=== PATIENT | male | born 1975 | race Caucasian/White ===

== ENCOUNTER 2019-02-17 17:18 | Emergency (ER) | payer SELFPAY ==
[2019-02-17 17:19] VITALS: BP 129/88; PULSE 85; RESP 16; TEMP 37.3; O2SAT 95; BMI 22.1
--- NOTE | 2019-02-17 17:48 | RAD_ITS ---
STUDY: X-RAY CHEST REASON FOR EXAM: Male, 43 years old. Chest pain TECHNIQUE: Portable chest COMPARISON: 06/25/2017 FINDINGS: There is stable mild S-shaped thoracolumbar spinal scoliosis. Multilevel degenerative changes with osteophyte formation and disc space narrowing. The lungs are clear and expanded. There is no demonstrated pleural abnormality. Normal size heart. Normal mediastinum and johanna. Normal visualized pulmonary arteries. Normal visualized aortic arch and descending thoracic aorta. Normal visualized thoracic spine. Normal visualized ribs, clavicles, and shoulders. There is no demonstrated abnormality of the visualized soft tissue structures of the upper abdomen. RAD/Chest 1 View (Portable) IMPRESSION: No acute process, stable mild S-shaped thoracolumbar spinal scoliosis, stable multilevel spondylosis Electronically Signed: Ben Hdz, at 18:16 EDT Tel , Service support ,
--- NOTE | 2019-02-17 17:48 | EKG12_ITS ---
Test Reason : CP Blood Pressure : / mmHG Vent. Rate : 067 BPM Atrial Rate : 067 BPM P-R Int : 164 ms QRS Dur : 084 ms QT Int : 358 ms P-R-T Axes : 080 095 066 degrees QTc Int : 378 ms Normal sinus rhythm with sinus arrhythmia Rightward axis Borderline ECG Confirmed by VAUGHN CHANDLER, MIQUEL ([id number]), social media editor SAM HARRISON ([id number]) on 02/20/2019 11:43:49 AM Referred By: KLEVER Confirmed By:MIQUEL MENDES MD
--- NOTE | 2019-02-17 17:53 | ED.DCSUM_ITS ---
History of Present Illness Chief Complaint: Chest Pain Informant: Patient Onset: Days - 3 Timing: Continuous Quality: burning, ache Location: epigastrium/lower mid-chest Current Severity: Moderate Maximum Severity: Moderate Worsened by: nothing Relieved by: burping, briefly Associated Symptoms: palpitations/racing/pounding, giving him lightheadedness Narrative: Patient has a history of reflux along with a hiatal hernia, he does not want to be on any medication for that and states this result he gets burning in his epigastrium chronically, almost daily. That is felt worse in the last 3 or 4 days and he has had episodes of heart pounding and beating fast with very little exertion that results in lightheadedness, he has had no loss of consciousness, but he is concerned about the symptoms. 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 He smokes. He does no other drugs. He denies any dyspnea or leg swelling or orthopnea. No history of DVT or PE. - Past Medical History (1) GERD (gastroesophageal reflux disease) Status: Chronic (2) Hiatal hernia Status: Chronic (3) Hyperlipidemia Status: Chronic Past Medical History - Allergies and Home Meds Allergies/Adverse Reactions: Allergies No Known Allergies Allergy (Verified 02/17/19 17:22) Primary Care Physician: Abdias Esquivel MD [Primary Care Provider] - 3-5 Days Lives: Spouse/ Significant Other Smoking Status: Current every day smoker Drugs: None Review of Systems General: Denies: Chills, Fever, Sweats Eyes: Denies: Visual changes - bilaterally, Diplopia ENT: Denies: Rhinorrhea, Sore throat Cardiovascular: Reports: Chest pain, Palpitations, Heart racing Respiratory: Denies: Dyspnea, Cough, Dyspnea on exertion, Orthopnea, Paroxysmal nocturnal dyspnea Gastrointestinal: Reports: Abdominal pain. Denies: Nausea, Vomiting, Diarrhea, Melena, Hematochezia Genitourinary: Denies: Dysuria, Hematuria, Frequency Musculoskeletal: Denies: Back pain, Extremity Pain Skin: Denies: Rash, Wounds Neurological: Denies: Headache, Weakness, Numbness Physical Exam Vital Signs/Narrative: Vital Signs Temp Pulse Resp BP Pulse Ox 02/17/19 17:19 99.2 F H 85 16 129/88 H 95 Inital Vital Signs reviewed: Yes General: Well nourished, Well developed, No Acute Distress Head: Normocephalic, Atraumatic Eyes: Perrl, EOMI ENT: Moist mucous membranes, No rhinorrhea Neck: Supple, Nontender, No lymphadenopathy, No JVD Cardiovascular: Regular rate, Regular rhythm, No murmurs Respiratory: No distress, CTA bilaterally, Chest nontender Abdomen: Soft, Nondistended, Normal bowel sounds, Tender - epigastrium, mild. Negative for: Guarding, Rebound tenderness Back: Nontender, Normal Inspection Extremities: Nontender, No edema. Negative for: Calf Tenderness Skin: Normal color, No rash, No Trauma Neurological: Alert, Oriented x3, Cranial nerves II-XII grossly intact, Normal Strength, Normal Sensation Psychological: Normal affect, Normal Mood Diagnostic/Tx/Re-eval Impressions Chest X-Ray 02/17/19 17:48 IMPRESSION: No acute process, stable mild S-shaped thoracolumbar spinal scoliosis, stable multilevel spondylosis Electronically Signed: Ben Hdz, at 18:16 EDT Tel , Service support , 02/17/19 17:48 Chest 1 View (Portable) [RAD] Stat Laboratory Results 02/17/19 02/17/19 02/17/19 18:15 18:15 18:15 WBC 6.9 RBC 4.88 Hgb 15.8 Hct 45.0 MCV 92.2 MCH 32.4 H MCHC 35.1 RDW 14.0 RDW Differential 47.2 H Plt Count 232 MPV 9.4 Immature Gran % (Auto) 0.100 Neut % (Auto) 48.1 Lymph % (Auto) 44.3 H [place] % (Auto) 6.4 Eos % (Auto) 1.0 Baso % (Auto) 0.1 Absolute Neuts (auto) 3.3 Absolute Lymphs (auto) 3.05 Total Counted Not Reportable D-Dimer Quant (PE/DVT) < 0.27 L Sodium 142 Potassium 3.8 Chloride 107 Carbon Dioxide 28.0 Anion Gap 7 BUN 9 Creatinine 0.99 Estim Creat Clear Calc 93.54 Est GFR (MDRD) Af Amer 106 Est GFR (MDRD) Non-Af 88 BUN/Creatinine Ratio 9.1 L Glucose 73 L Calcium 9.6 Troponin I < 0.015 - EKG Initial EKG Interpretation: Sinus Rhythm, No Acute Injury Pattern, - - normal EKG. rate 67. borderline rightward axis. - Medical Decision Making Work-up is negative including x-ray, d-dimer, troponin. He is reassured. He tried to exert himself while on the monitor in the room and was unable to reproduce any of his symptoms, he has had no ectopy or dysrhythmias on telemetry since he has been in his ER observation. I think he needs to follow-up with his doctor, if he has persistent symptoms despite stopping caffeine and tobacco use, he should potentially get a Holter monitor and referral to cardiology. I advised him that his hiatal hernia and reflux could potentially be at play here with regards to his chronic lower chest discomfort, I gave him a GI cocktail which did help some of that, and I advised him that these are risk factors for Condon's esophagus which could be cancerous. He states he was on esomeprazole but he did not tolerate it well. I advised him to take ranitidine twice daily until he follows up with his doctor, for at least 2 weeks. He is comfortable with this plan. ED Disposition - Plan for ED Patient: Disposition: Home or Assisted Living Diagnosis: Chest pain, unspecified, Palpitations Instructions: ED Chest Pain NonCardiac, ED Palpitations Referrals: Abdias Esquivel MD [Primary Care Provider] - 3-5 Days Additional Instructions: Take ranitidine 75 mg twice daily, or may take 150 mg once daily.
[2019-02-17 18:22] LABS: Absolute Lymphocyte Count 3.05 X10^3/ul (0.83-4.51); Absolute Neutrophil Count 3.3 X10^3/uL (2.0-7.7); Basophil# 0.01 X10^3/uL; Basophil% 0.1 % (0-1); Eosinophil# 0.07 X10^3/uL; Hemoglobin 15.8 g/dl (13.0-16.5); Lymphocyte # 3.05 X10^3/ul (4.0); Lymphocyte % 44.3 % (19-41); Mean Corp Hgb Conc 35.1 g/gl (32-36); Mean Corpuscular Hgb 32.4 pg (27.0-32.0); Mean Corpuscular Volume 92.2 fL (80-94); Mean Platelet Vol. 9.4 fl (6.2-12.0); Monocyte# 0.44 X10^3/uL; Monocyte% 6.4 % (0-10); Neutrophil # 3.31 X10^3/uL (2.7-7.7); Neutrophil % 48.1 % (47-70); Platelet Count 232 K/mm3 (150-450); RBC Distribution Width SD 47.2 fl (35.1-43.9); Red Blood Count 4.88 M/mm3 (4.6-6.2); White Blood Count 6.9 K/mm3 (4.4-11.0)
[2019-02-17 18:23] LABS: POSITIVE COUNT NO; POSITIVE DIFFERENTIAL NO; POSITIVE MORPHOLOGY NO
[2019-02-17] MEDS: Mag Hydrox/Al Hydrox/Simeth 30 ML UDC PO (18:24)
[2019-02-17 18:34] LABS: D-Dimer Quantitative (DVT/PE) < 0.27 FEU/ug/m (0.27-0.49)
[2019-02-17 18:41] LABS: Anion Gap 7 (5-15); BUN 9 mg/dL (7-18); BUN/Creat Ratio 9.1 RATIO (10-20); Calcium,Total 9.6 mg/dL (8.5-10.1); Chloride 107 mmol/L (98-107); Creatinine, Serum 0.99 mg/dL (0.70-1.30); EST Glomerular Filtration Rate 88 mL/min (>60); Est Glom Filt Rate - Afr Amer 106 mL/min (>60); Estimated Creatinine Clearance 93.54 ml/min; Glucose 73 mg/dL (74-106); Potassium 3.8 mmol/L (3.5-5.1); Sodium Level 142 mmol/L (136-145)
[2019-02-17 19:21] VITALS: BP 129/64; PULSE 69; RESP 18; O2SAT 98
[2019-02-17 20:13] VITALS: BP 138/83; PULSE 78; RESP 16; O2SAT 98
== END 2019-02-17 20:16 | disposition home or self-care (01) ==
PROVIDERS: Emergency Provider Emergency Medicine; Family Provider Family Medicine; PCP Family Medicine
DX: R07.9 Chest pain, unspecified (principal); R00.2 Palpitations; F17.200 Nicotine dependence, unspecified, uncomplicated
CPT/HCPCS: 71045; 80048; 84484; 85025; 85379; 93005; 99285; A4216

== ENCOUNTER → 2019-02-28 08:40 | Outpatient (CLI) | payer SELFPAY ==
[2019-02-28 08:25] VITALS: BMI 22.1
[2019-02-28 13:05] LABS: Cholesterol 273 mg/dL (200); High Density Lipoprotein 33 mg/dL; Triglycerides 361 mg/dL; Very Low Density Lipoprotein 72 mg/dL (5-40)
== END ==
LOC: BIMLAB 08:41
PROVIDERS: Family Provider Family Medicine; PCP Internal Medicine; Visit Provider Internal Medicine
DX: E78.5 Hyperlipidemia, unspecified (principal)
CPT/HCPCS: 36415; 80061

== ENCOUNTER → 2019-03-03 06:17 | Outpatient (CLI) | payer SELFPAY ==
[2019-02-28 08:25] VITALS: BMI 22.1
--- NOTE | 2019-03-03 09:43 | STRESSREP ---
Stress Test Report Exercise myocardial perfusion stress test. 44-year-old male with a history of chest pain. Medications none. Stress protocol: Resting EKG demonstrates sinus bradycardia with a rate of 56 bpm normal intervals are noted resting blood pressures 104/62 mmHg. The patient exercised according to regular Sudheer protocol for total duration of 11 minutes completing with 2 minutes into stage IV of the Sudheer protocol the maximum heart rate attained was 173 bpm which was 97% of maximum predicted heart rate the maximum workload was 13.4 metabolic equivalents. At rest there were no ST or T wave changes noted suggest ischemia peak exercise upsloping ST changes only were noted with no meet the criteria for ischemia. The resting blood pressure was 104/62 with a peak blood pressure 164/72. No clinical angina was noted. The test was terminated due to leg fatigue. Myocardial perfusion protocol. 11.3 mCi of technetium 99m sestamibi was injected at rest. The patient exercised according to regular Sudheer protocol. At peak exercise 32.9 mCi of technetium 99m sestamibi was injected stress images were obtained stress and rest images were reconstructed in comparing the short axis vertical long horizontal long axis. Gated images were also obtained next Perfusion SPECT analysis: Review of the stress images demonstrate normal uptake of tracer noted in all areas of myocardium. The resting images similarly demonstrate normal uptake of tracer noted in all areas of the myocardium. No areas of reversibility are noted suggest ischemia no previous infarct is noted. Gated SPECT analysis: The gated ejection fraction is noted to be 69%. Conclusion: Normal exercise myocardial perfusion stress test at a high workload. Preserved ejection fraction.
== END ==
PROVIDERS: Family Provider Internal Medicine; PCP Internal Medicine; Referring Provider Internal Medicine; Visit Provider Internal Medicine
DX: R07.9 Chest pain, unspecified (principal)
CPT/HCPCS: 78452; 93017; A9500; A4216

== ENCOUNTER → 2019-09-15 11:55 | Outpatient (CLI) | payer SELFPAY ==
[2019-09-15 11:27] VITALS: BMI 22.1
[2019-09-15 11:56] LABS: Bacteria 0 SEEN /hpf (None Seen); Mucous, Urine 0 SEEN /hpf (<or=2+); Red Blood Cells-Urine 0 SEEN /hpf (0-5); White Blood Cells 0 SEEN /hpf (0-5)
[2019-09-15 13:20] LABS: ALB/GLOB Ratio 1.4 RATIO (0.9-2.4); AST(SGOT) 19 U/L (15-37); Alanine Aminotransfer ALT/SGPT 27 U/L (16-61); Albumin, Serum 4.4 g/dL (3.2-5.0); Alkaline Phosphatase 61 U/L (45-117); BUN 13 mg/dL (7-18); Calcium,Total 9.4 mg/dL (8.5-10.1); Cholesterol 284 mg/dL (200); Creatinine, Serum 1.08 mg/dL (0.70-1.30); EST Glomerular Filtration Rate 79 mL/min (>60); Est Glom Filt Rate - Afr Amer 96 mL/min (>60); Globulin 3.2 g/dL (2.2-4.2); Glucose 83 mg/dL (74-106); Protein, Total 7.6 g/dL (6.4-8.2); Triglycerides 131 mg/dL
[2019-09-15 13:21] LABS: Anion Gap 6 (5-15); Chloride 105 mmol/L (98-107); High Density Lipoprotein 39 mg/dL; Potassium 4.3 mmol/L (3.5-5.1); Sodium Level 139 mmol/L (136-145); Very Low Density Lipoprotein 26 mg/dL (5-40)
[2019-09-15 13:23] LABS: Color, Urine Yellow (Yellow); Glucose, Dipstick Normal (Normal); Ketone-Dipstick Negative (Negative); Leukocyte Esterase-Dipstick Negative /ul (Negative); Nitrite-Dipstick Negative (Negative); Occult Blood-Urine Negative /ul (Negative); Protein-Dipstick Negative (Negative); Specific Gravity, Urine 1.005 (1.002-1.030); Urine Bilirubin Dipstick Negative (Negative); Urine Clarity Clear (Clear); Urine Urobilinogen Normal (Normal)
[2019-09-15 13:32] LABS: Squamous Epithelial Cells - UA 0-5 SEEN /hpf (0-5)
[2019-09-15 18:22] LABS: Chlamydia Trachomatis by PCR Negative (Negative); Neisserai gonorrhoeae by PCR Negative (Negative); Probe Check PASS; Sample Adequacy Control PASS; Specimen Processing Control PASS
== END ==
LOC: BIMLAB 11:55
PROVIDERS: Family Provider Internal Medicine; PCP Internal Medicine; Visit Provider Internal Medicine
DX: N41.9 Inflammatory disease of prostate, unspecified (principal); E78.5 Hyperlipidemia, unspecified
CPT/HCPCS: 36415; 80053; 80061; 81001; 87491; 87591

== ENCOUNTER → 2019-12-01 10:52 | Outpatient (CLI) | payer SELFPAY ==
[2019-12-01 10:15] VITALS: BMI 22.1
[2019-12-01 10:56] LABS: Bacteria 0 SEEN /hpf (None Seen); Mucous, Urine 0 SEEN /hpf (<or=2+); Red Blood Cells-Urine 0 SEEN /hpf (0-5); Squamous Epithelial Cells - UA 0 SEEN /hpf (0-5); White Blood Cells 0 SEEN /hpf (0-5)
[2019-12-01 12:19] LABS: Color, Urine Yellow (Yellow); Glucose, Dipstick Normal (Normal); Ketone-Dipstick Negative (Negative); Leukocyte Esterase-Dipstick Negative /ul (Negative); Nitrite-Dipstick Negative (Negative); Occult Blood-Urine Negative /ul (Negative); Protein-Dipstick Negative (Negative); Urine Bilirubin Dipstick Negative (Negative); Urine Clarity Clear (Clear); Urine Urobilinogen Normal (Normal)
[2019-12-01 13:09] LABS: PSA,Total- Diagnostic 1.34 ng/mL (0.0-4.0)
== END ==
LOC: BIMLAB 10:53
PROVIDERS: PCP Internal Medicine; Referring Provider Nurse Practitioner Family; Visit Provider Nurse Practitioner Family
DX: R30.0 Dysuria (principal)
CPT/HCPCS: 36415; 81001; 84153; 87086

== ENCOUNTER → 2020-01-26 16:06 | Outpatient (CLI) | payer SELFPAY ==
[2020-01-02 16:12] VITALS: BMI 22.1
== END ==
LOC: MTDU 16:06
PROVIDERS: PCP Internal Medicine; Visit Provider Nurse Practitioner Family
DX: J02.9 Acute pharyngitis, unspecified (principal); R53.83 Other fatigue
CPT/HCPCS: 87804; 87880

== ENCOUNTER → 2021-03-17 11:28 | Outpatient (CLI) | payer OTHER, SELFPAY ==
[2020-07-15 11:20] VITALS: BMI 22.1
[2021-03-17 12:44] LABS: Absolute Lymphocyte Count 2.53 X10^3/uL (0.83-4.51); Absolute Neutrophil Count 5.6 X10^3/uL (2.0-7.7); Basophil# 0.03 X10^3/uL; Basophil% 0.3 % (0-1); Eosinophil# 0.13 X10^3/uL; Eosinophils% 1.5 % (0-5); Hematocrit 47.9 % (40-54); Hemoglobin 16.5 g/dL (13.0-16.5); Lymphocyte # 2.53 X10^3/ul (0.83-4.51); Lymphocyte % 28.4 % (19-41); Mean Corp Hgb Conc 34.4 g/dL (32-36); Monocyte# 0.61 X10^3/uL; Monocyte% 6.9 % (0-10); NRBC Flagged by Analyzer 0 % (0-5); Neutrophil # 5.58 X10^3/uL (2.7-7.7); Neutrophil % 62.7 % (47-70); Platelet Count 291 K/mm3 (150-450); RBC Distribution Width CV 12.9 % (11.6-14.6); RBC Distribution Width SD 44.2 fl (35.1-43.9); Red Blood Count 5.15 M/mm3 (4.6-6.2); White Blood Count 8.9 K/mm3 (4.4-11.0)
[2021-03-17 13:32] LABS: ALB/GLOB Ratio 1.2 RATIO (0.9-2.4); AST(SGOT) 21 U/L (15-37); Alanine Aminotransfer ALT/SGPT 30 U/L (16-61); Albumin, Serum 4.3 g/dL (3.2-5.0); Alkaline Phosphatase 58 U/L (45-117); Anion Gap 5 (5-15); BUN 14 mg/dL (7-18); BUN/Creat Ratio 13.5 RATIO (10-20); Calcium,Total 9.8 mg/dL (8.5-10.1); Chloride 105 mmol/L (98-107); Cholesterol 261 mg/dL (200); Creatinine, Serum 1.04 mg/dL (0.70-1.30); EST Glomerular Filtration Rate 82 mL/min (>60); Est Glom Filt Rate - Afr Amer 99 mL/min (>60); Globulin 3.6 g/dL (2.2-4.2); Glucose 100 mg/dL (74-106); High Density Lipoprotein 45 mg/dL; Protein, Total 7.9 g/dL (6.4-8.2); Sodium Level 138 mmol/L (136-145); Triglycerides 134 mg/dL; Very Low Density Lipoprotein 27 mg/dL (5-40)
== END ==
LOC: MFPLAB 11:31
PROVIDERS: PCP Internal Medicine; Visit Provider Family Medicine
DX: R10.9 Unspecified abdominal pain (principal); E78.5 Hyperlipidemia, unspecified
CPT/HCPCS: 36415; 80053; 80061; 85025

== ENCOUNTER → 2021-03-29 09:02 | Outpatient (CLI) | payer OTHER, SELFPAY ==
[2020-07-15 11:20] VITALS: BMI 22.1
--- NOTE | 2021-03-29 09:03 | US_ITS ---
EXAM: US ABDOMEN LIMITED, RIGHT UPPER QUADRANT CLINICAL INDICATION: abdominal pain -- scrotal and lower abdominal pain TECHNIQUE: Real-time ultrasound of the right upper quadrant with image documentation. This report was created using [employer] report generation technology. COMPARISON: None. FINDINGS: LIVER: Unremarkable. There is normal echotexture. No focal hepatic lesion. No intrahepatic biliary ductal dilation. GALLBLADDER: Unremarkable. No shadowing gallstone. No gallbladder wall thickening is demonstrated. No pericholecystic fluid. Negative sonographic Red''s sign. COMMON BILE DUCT: Unremarkable as visualized. The proximal common bile duct is within normal limits for the patient''s age. PANCREAS: Unremarkable as visualized. No focal abnormality is demonstrated in the pancreas. No pancreatic ductal dilatation. RIGHT KIDNEY: Unremarkable. There is no hydronephrosis. No shadowing calculus. No focal lesion or perinephric collection is demonstrated. US/Abdomen Limited IMPRESSION: Normal right upper quadrant ultrasound. Electronically Signed: Facundo Nguyen MD ([place]) at 17:31 EDT , Service support ,
== END ==
LOC: US 09:03
PROVIDERS: PCP Family Medicine; Referring Provider Family Medicine; Visit Provider Family Medicine
DX: R10.9 Unspecified abdominal pain (principal)
CPT/HCPCS: 76705

== ENCOUNTER → 2021-04-16 15:55 | Outpatient (CLI) | payer OTHER, SELFPAY ==
[2020-07-15 11:20] VITALS: BMI 22.1
--- NOTE | 2021-04-16 15:57 | CT_ITS ---
STUDY: CT ABDOMEN AND PELVIS WITH CONTRAST REASON FOR EXAM: Male, 46 years old. Abdominal pain lower abdomen and pelvis RADIATION DOSAGE (If Supplied By Facility): CTDIvol = ( 9.85 ) mGy, DLP = ( 370.21 ) mGycm TECHNIQUE: Transaxial images were obtained from the dome of the diaphragm to the symphysis pubis with oral contrast. Oral and amp; IV Readi-CAT and amp; 100mL Isovue-300 was administered. Sagittal and coronal images were reconstructed. Individualized dose optimization techniques were used for this CT. COMPARISON: None. FINDINGS: The visualized lung bases are unremarkable. The visualized portions of the heart are within normal limits. Normal liver. Normal gallbladder and extrahepatic biliary system. Normal spleen. Normal pancreas. Normal bilateral adrenal glands. Normal right kidney. Normal left kidney. Normal visualized stomach. Normal small intestine. Normal colon. The appendix is visualized and appears normal. Normal abdominal aorta. Normal inferior vena cava. Normal retroperitoneum. Normal urinary bladder. Normal abdominal wall. Mild levoscoliosis of the lumbar spine with degenerative disc disease. CT/Abdomen/Pelvis WITH Contrast IMPRESSION: Normal enhanced CT of the abdomen and pelvis. Electronically Signed: Axel Perez MD at 8:30 EDT Tel , Service support ,
== END ==
LOC: CT 15:56
PROVIDERS: PCP Family Medicine; Referring Provider Family Medicine; Visit Provider Family Medicine
DX: R10.9 Unspecified abdominal pain (principal)
CPT/HCPCS: 74177; Q9967

== ENCOUNTER → 2021-05-13 14:49 | Outpatient (CLI) | payer OTHER, SELFPAY ==
[2020-07-15 11:20] VITALS: BMI 22.1
[2021-05-13 16:14] LABS: PSA,Total - Annual Screen 1.53 ng/mL (0.00-4.00)
== END ==
PROVIDERS: PCP Family Medicine; Referring Provider Nurse Practitioner Adult Health; Visit Provider Nurse Practitioner Adult Health
DX: Z12.5 Encounter for screening for malignant neoplasm of prostate (principal)
CPT/HCPCS: 36415; 84153; G0103

== ENCOUNTER → 2021-06-10 13:47 | Outpatient (CLI) | payer OTHER, SELFPAY ==
[2020-07-15 11:20] VITALS: BMI 22.1
== END ==
PROVIDERS: PCP Family Medicine; Referring Provider Family Medicine; Visit Provider Family Medicine
DX: U07.1 COVID-19 (principal)
CPT/HCPCS: 36415; 86769

== ENCOUNTER → 2021-09-09 12:01 | Outpatient (CLI) | payer OTHER, SELFPAY ==
--- NOTE | 2021-09-09 12:03 | RAD_ITS ---
STUDY: X-RAY CHEST REASON FOR EXAM: Male, 46 years old. HEMOPTYSIS TECHNIQUE: PA and lateral views of the chest. COMPARISON: Comparison is made with prior study dated 02/17/2019. FINDINGS: There is hyperinflation of the lungs consistent with chronic obstructive lung disease (COPD). Decreased bronchovascular markings in both lungs suggestive of emphysematous changes. There is no demonstrated pleural abnormality. Normal size heart. Normal mediastinum and johanna. Normal visualized pulmonary arteries. Normal visualized aortic arch and descending thoracic aorta. There are degenerative changes of the visualized thoracic spine. Normal visualized ribs, clavicles, and shoulders. There is no demonstrated abnormality of the visualized soft tissue structures of the upper abdomen. RAD/Chest PA and Lateral IMPRESSION: Hyperinflation. Findings suggestive of a emphysematous changes with decreased bronchovascular markings bilaterally. Electronically Signed: Chintan Nance MD at 15:07 EST , Service support ,
[2021-09-09 15:05] LABS: Absolute Lymphocyte Count 2.84 X10^3/uL (0.83-4.51); Absolute Neutrophil Count 7.5 X10^3/uL (2.0-7.7); Basophil# 0.04 X10^3/uL; Basophil% 0.4 % (0-1); Eosinophil# 0.14 X10^3/uL; Eosinophils% 1.3 % (0-5); Hematocrit 50.5 % (40-54); Hemoglobin 17.2 g/dL (13.0-16.5); Lymphocyte # 2.84 X10^3/ul (0.83-4.51); Lymphocyte % 25.6 % (19-41); Mean Corp Hgb Conc 34.1 g/dL (32-36); Mean Corpuscular Hgb 32.2 pg (27.0-32.0); Mean Corpuscular Volume 94.6 fL (80-94); Mean Platelet Vol. 10.4 fl (6.2-12.0); Monocyte# 0.57 X10^3/uL; Monocyte% 5.1 % (0-10); NRBC Flagged by Analyzer 0 % (0-5); Neutrophil # 7.48 X10^3/uL (2.7-7.7); Neutrophil % 67.3 % (47-70); Platelet Count 293 K/mm3 (150-450); RBC Distribution Width CV 12.9 % (11.6-14.6); RBC Distribution Width SD 44.8 fl (35.1-43.9); Red Blood Count 5.34 M/mm3 (4.6-6.2); White Blood Count 11.1 K/mm3 (4.4-11.0)
[2021-09-09 15:31] LABS: ALB/GLOB Ratio 1.2 RATIO (0.9-2.4); AST(SGOT) 21 U/L (15-37); Alanine Aminotransfer ALT/SGPT 24 U/L (16-61); Albumin, Serum 4.5 g/dL (3.2-5.0); Alkaline Phosphatase 66 U/L (45-117); Anion Gap 7 (5-15); BUN 11 mg/dL (7-18); BUN/Creat Ratio 9.7 RATIO (10-20); Chloride 106 mmol/L (98-107); Creatinine, Serum 1.13 mg/dL (0.70-1.30); EST Glomerular Filtration Rate 74 mL/min (>60); Est Glom Filt Rate - Afr Amer 90 mL/min (>60); Globulin 3.8 g/dL (2.2-4.2); Glucose 90 mg/dL (74-106); Potassium 4.3 mmol/L (3.5-5.1); Protein, Total 8.3 g/dL (6.4-8.2); Sodium Level 138 mmol/L (136-145); Thyroid Stim Hormone (TSH) 1.54 uIU/mL (0.358-3.74)
== END ==
PROVIDERS: PCP Family Medicine; Referring Provider Family Medicine; Visit Provider Family Medicine
DX: R04.2 Hemoptysis (principal); R25.1 Tremor, unspecified
CPT/HCPCS: 36415; 71046; 80053; 84443; 85025

== ENCOUNTER → 2022-09-21 | Outpatient (CLI) | payer SELFPAY ==
--- NOTE | 2022-09-21 12:47 | CYST_PTH ---
PATIENT: HAROON BOLANOS LOC: [facility] U#:[id number] AGE/SX: 47/M ROOM: RE09/21/[address]: Dr. Michael Beckford MD : 1975 BED: DIS: 09/21/2022 SPEC #: [id number] RECD: 09/21/22 14:54 STATUS: GUERITA NOLAND #: [id number] MARIJA: 09/21/22 12:[address]: Michael Beckford DEPT: SURGICAL PATHOLOGY RECD BY: Lorena Turner ENTERED: 09/22/22 07:26 SP TYPE: Cyst OTHR DR: Dr. Lizeth Berry MD [facility] Tissues: CYST Procedures: Surgery Specimen Level III HEADER OPERATION: Excision right earlobe cyst PRE-OP DIAGNOSIS: Right earlobe cyst TISSUE SUBMITTED: Right earlobe cyst MICROSCOPIC DIAGNOSIS Cyst of right earlobe, excision: Epidermal inclusion cyst. AM:shelby 09/23/2022 MICROSCOPIC DESCRIPTION Slides are reviewed. GROSS DESCRIPTION Received in fixative is one container labeled with the patient's name and designated right earlobe cyst. The specimen consists of lion-white skin with underlying cyst. The skin piece measures 1.8 x 1.5 cm and underlying cyst measures 1.5 x 1.2 x 1.2 cm. The specimen is inked, serially sectioned and reveals the cyst to be filled with lion-white cheesy material. The entire specimen is submitted in one cassette. / SJ:rg 09/22/2022 :5 [facility]: [id number]
== END | disposition home or self-care (01) ==
PROVIDERS: PCP Family Medicine; Visit Provider Otolaryngology
DX: Q18.1 Preauricular sinus and cyst (principal)
CPT/HCPCS: 88304